=== PATIENT | female | born 1985 | race Caucasian/White ===

== ENCOUNTER 2024-08-31 09:57 | Emergency (ER) | payer OTHER ==
[2024-08-31 10:07] VITALS: BP 125/58; PULSE 81
[2024-08-31] MEDS: Ondansetron 4 MG Tab.DIS PO ONE (10:25)
[2024-08-31] MEDS: Acetaminophen 325 MG Tab PO ONE (10:25)
[2024-08-31] MEDS: Bacitracin/Neomycin/Polymyxin B Oint 28.4 GM Tube TOP ONE (11:16)
[2024-08-31] MEDS: Diphtheria,Pertussis(Acell),Tetanus Vaccine 0.5 ML Syringe IM ONE (11:17)
== END 2024-08-31 11:56 | disposition home or self-care (01) ==
LOC: DL.ED 09:57
DX: S06.0X0A Concussion without loss of consciousness, initial encounter (principal); Z79.899 Other long term (current) drug therapy; W22.8XXA Striking against or struck by other objects, initial encounter; Z23 Encounter for immunization
CPT/HCPCS: 70450; 90471; 90715; 99283; A9270